=== PATIENT | male | born 1955 | race Hispanic/Latino ===

== ENCOUNTER 2022-10-06 20:25 | Inpatient (IN) | payer SELFPAY ==
[2022-10-06] MEDS ORDERED: Acetaminophen 325 MG TAB PO PRN (21:28)
[2022-10-06] MEDS ORDERED: Ondansetron PF 4 MG/2 ML Vial IVP PRN (21:28)
[2022-10-06] MEDS ORDERED: HumaLOG 300 UNITS/3 ML VIAL SC PRN (21:30)
[2022-10-06] MEDS ORDERED: Insulin Glargine 30 UNITS/0.3 ML VIAL SC SCH (21:30)
[2022-10-06] MEDS ORDERED: Dextrose 50% Abboject 50 ML SYRINGE SLOW IVP PRN (21:30)
[2022-10-06] MEDS ORDERED: Dextrose 5% in Water 1,000 ML IV PRN (21:30)
[2022-10-06] MEDS ORDERED: Losartan 25 MG TAB PO SCH (21:30)
[2022-10-06] MEDS ORDERED: traMADol HCl 50 MG TAB PO PRN (21:35)
[2022-10-06 22:13] LABS: SARS-CoV-2 NAA Rapid Test Not Detected (NotDetected)
[2022-10-06] MEDS: Ketorolac Tromethamine 30 MG/ML VIAL IVP SCH (23:45)
[2022-10-07 00:11] VITALS: BMI 24.8
[2022-10-07 01:58] LABS: Troponin I 0.055 ng/mL (< 0.028)
[2022-10-07] MEDS: HumaLOG 300 UNITS/3 ML VIAL SC PRN ×2 (03:25→18:10)
[2022-10-07] MEDS ORDERED: Sodium Chloride 0.9% 1,000 ML IV SCH (03:30)
[2022-10-07 04:57] LABS: #Lymphocytes 0.9 thou/uL (1.20-3.40); #Monocytes 0.8 thou/uL (0.11-0.59); #Neutrophils 6.8 thou/uL (1.40-6.50); %Basophils 0.3 % (0.0-1.0); %Eosinophils 0.5 % (0.0-10.0); %Lymphocytes 10.3 % (21.0-51.0); Hemoglobin 12.5 g/dL (14.0-18.0); Mean Corpuscular HGB CONC 35.4 g/dL (32.0-36.0); Mean Corpuscular Hemoglobin 32.1 pg (27.0-31.0); Mean Corpuscular Volume 90.6 fl (78.0-98.0); Platelet Count 146 10x3/uL (130-400); RBC Distribution Width 11.2 % (11.5-14.5); Red Blood Cell (RBC) Count 3.89 mill/uL (4.70-6.10); White Blood Cell (WBC) Count 8.5 10x3/uL (4.8-10.8)
[2022-10-07 05:07] LABS: Hemoglobin A1c 11.1 % (4.0-6.0)
[2022-10-07 05:26] LABS: Anion Gap 15 mmol/L (10-20); BUN (Urea Nitrogen) 19 mg/dL (8.4-25.7); Calc. Creatinine Clearance 60 mL/min (70-130); Calcium 8.3 mg/dL (7.8-10.44); Carbon Dioxide 22 mmol/L (23-31); Cardiac Risk 3.7 (Less than 4.5); Chloride 100 mmol/L (98-107); Cholesterol 193 mg/dl (< 200 Desired); Estimated GFR 66; Glucose 333 mg/dL (80-115); HDL Cholesterol 52 mg/dL (>60 Neg Risk); LDL Cholesterol, Calculated 107 mg/dL; Potassium 3.6 mmol/L (3.5-5.1); Sodium 133 mmol/L (136-145); Triglycerides 172 mg/dL (Less than 150)
[2022-10-07 05:28] LABS: Troponin I 0.178 ng/mL (< 0.028)
[2022-10-07] MEDS ORDERED: Amlodipine 10 MG TAB PO SCH (08:45)
[2022-10-07] MEDS ORDERED: FLU VACC QS2022-23(65YR UP)/PF 240 MCG/0.7 ML SYRINGE IM ONE (09:00)
[2022-10-07] MEDS ORDERED: Losartan 25 MG TAB PO SCH (09:00)
[2022-10-07] MEDS ORDERED: NIFEdipine XL 60 MG TAB PO SCH (09:30)
[2022-10-07] MEDS ORDERED: Aspirin 81 mg Enteric Coated Tablet PO SCH (09:30)
[2022-10-07 09:43] LABS: CKMB 5.1 ng/mL (0-6.6)
[2022-10-07] MEDS ORDERED: Hydrochlorothiazide 25 MG TAB PO SCH (12:45)
[2022-10-07] MEDS ORDERED: hydrALAZINE 20 MG/ML VIAL SLOW IVP PRN (15:31)
[2022-10-07] MEDS: Ketorolac Tromethamine 30 MG/ML VIAL IVP SCH (20:42)
[2022-10-07] MEDS ORDERED: Rosuvastatin 20 MG TAB PO SCH (21:00)
[2022-10-07] MEDS ORDERED: Insulin Glargine 30 UNITS/0.3 ML VIAL SC SCH (21:00)
[2022-10-08 05:42] LABS: #Basophils 0.1 thou/uL (0.0-0.2); #Eosinphils 0.2 thou/uL (0.0-0.7); #Lymphocytes 1.1 thou/uL (1.20-3.40); #Monocytes 0.7 thou/uL (0.11-0.59); #Neutrophils 4.3 thou/uL (1.40-6.50); %Basophils 0.8 % (0.0-1.0); %Eosinophils 3.7 % (0.0-10.0); %Lymphocytes 17.5 % (21.0-51.0); %Monocytes 10.8 % (0.0-10.0); %Neutrophils 67.2 % (42.0-75.0); Hemoglobin 12.6 g/dL (14.0-18.0); Mean Corpuscular HGB CONC 35.3 g/dL (32.0-36.0); Mean Corpuscular Hemoglobin 32.8 pg (27.0-31.0); Mean Corpuscular Volume 93.1 fl (78.0-98.0); Mean Platelet Volume 8.2 fL (7.4-10.4); Platelet Count 171 10x3/uL (130-400); RBC Distribution Width 11.5 % (11.5-14.5); Red Blood Cell (RBC) Count 3.84 mill/uL (4.70-6.10); White Blood Cell (WBC) Count 6.5 10x3/uL (4.8-10.8)
[2022-10-08 06:04] LABS: Anion Gap 13 mmol/L (10-20); BUN (Urea Nitrogen) 24 mg/dL (8.4-25.7); Calc. Creatinine Clearance 47 mL/min (70-130); Calcium 8.2 mg/dL (7.8-10.44); Carbon Dioxide 23 mmol/L (23-31); Chloride 99 mmol/L (98-107); Estimated GFR 49; Glucose 200 mg/dL (80-115); Potassium 3.3 mmol/L (3.5-5.1); Sodium 132 mmol/L (136-145)
[2022-10-08] MEDS ORDERED: Potassium Chloride 20 MEQ TAB PO SCH (08:45)
[2022-10-08] MEDS ORDERED: NIFEdipine XL 60 MG TAB PO SCH (09:00)
[2022-10-08] MEDS ORDERED: Losartan 25 MG TAB PO SCH (09:00)
[2022-10-08] MEDS ORDERED: Aspirin 81 mg Enteric Coated Tablet PO SCH (09:00)
[2022-10-08] MEDS ORDERED: Regadenoson 0.4 MG/5 ML SYRINGE ONE (10:31)
[2022-10-08] MEDS: HumaLOG 300 UNITS/3 ML VIAL SC PRN (11:30)
[2022-10-08 12:34] VITALS: BP 129/64; TEMP 97.6
[2022-10-09] MEDS ORDERED: Potassium Chloride 20 MEQ TAB PO SCH (08:00)
== END 2022-10-08 18:01 | disposition home or self-care (01) | DRG 281 ==
LOC: ERS 20:25 → 2SW 21:35 → OBSVTOIN 10-08 07:46
PROVIDERS: ADMIT Internal Medicine; ATTEND Internal Medicine
DX: I16.0 Hypertensive urgency (principal); I21.A1 Myocardial infarction type 2; E87.1 Hypo-osmolality and hyponatremia; I10 Essential (primary) hypertension; E78.5 Hyperlipidemia, unspecified; E11.65 Type 2 diabetes mellitus with hyperglycemia; M25.512 Pain in left shoulder; G89.29 Other chronic pain; M75.122 Complete rotator cuff tear or rupture of left shoulder, not specified as traumatic; Z91.14 Patient's other noncompliance with medication regimen; Z79.84 Long term (current) use of oral hypoglycemic drugs; Z79.899 Other long term (current) drug therapy; Z83.3 Family history of diabetes mellitus; Z87.891 Personal history of nicotine dependence; Z20.822 Contact with and (suspected) exposure to COVID-19; F10.10 Alcohol abuse, uncomplicated; E87.6 Hypokalemia
CPT/HCPCS: 36415; 36416; 78452; 80048; 80061; 82553; 83036; 84484; 85025; 93005; 93010; 93017; 93306; 96374; 96375; A9500; G0378; J0360; J1815; J1885; J2785; J7050; U0002